=== PATIENT | female | born 1955 | race Caucasian/White ===

== ENCOUNTER → 2022-09-27 23:42 | Outpatient (CLI) | payer MEDICARE, MEDICAID, SELFPAY ==
[2022-09-27 18:49] LABS: Basophils # 0.1 K/mm3 (0-0.2); Basophils % 0.6 % (0.1-2.0); Eosinophils # 0.3 K/mm3 (0.0-0.4); Hematocrit 46.1 % (37.0-47.0); Hemoglobin 15.4 g/dL (12.2-16.2); Lymphocytes % 27.8 % (10-50); Mean Corpuscular HGB Conc 33.3 g/dL (31.8-35.4); Mean Corpuscular Hemoglobin 31.7 pg (27.0-31.2); Mean Corpuscular Volume 95.2 fl (81-99); Mean Platelet Volume 8.5 fl (7.4-10.4); Monocytes # 0.4 K/mm3 (0.1-1.0); Monocytes % 5.3 % (1.7-9.3); Neutrophils # 4.5 K/mm3 (1.8-7.8); Neutrophils % 62.2 % (37.0-80.0); Platelet Count 280 K/mm3 (142-424); Red Blood Count 4.85 M/mm3 (4.20-5.40); Red Cell Distribution Width 14.7 % (11.5-17.5); White Blood Count 7.3 K/mm3 (4.8-10.8)
[2022-09-27 19:20] LABS: Alanine Aminotransferase 17 U/L (12-78); Albumin/Globulin Ratio 1.6 (1.1-1.8); Alkaline Phosphatase 101 U/L (38-126); Anion Gap 20.9 mEq/L (5-15); Aspartate Amino Transferase 30 U/L (14-36); Bilirubin,Total 0.6 mg/dl (0.2-1.3); Blood Urea Nitrogen 9 mg/dl (7-17); Calcium 9.6 mg/dl (8.4-10.2); Carbon Dioxide 21 mmol/L (22.0-30.0); Chloride 102 mmol/L (98-107); Chol/HDL Ratio 2.7 (1-3.5); Cholesterol 228 mg/dl (140-200); Estimated Glomerular Filt Rate 99 ml/min (>60); GFR (African American) 120 ML/MIN (>60); Globulin 3.2 g/dL (1.3-3.2); Glucose 106 mg/dl (74-100); HDL Cholesterol 85 mg/dl (40-60); Potassium 3.9 mmoL/L (3.5-5.1); Sodium 140 mmol/L (136-145); Total Protein,Serum 8.2 g/dl (6.3-8.2); Triglycerides 102 mg/dl (30-150); VLDL Cholesterol 20 mg/dL (0-40)
[2022-09-27 19:31] LABS: Direct LDL Cholesterol 126.34 mg/dL (100-129)
[2022-09-27 19:39] LABS: T4 (Thyroxine) 9.1 ug/dl (5.53-11.0)
[2022-09-27 19:40] LABS: 25-OH Vitamin D, Total 40.4 ng/mL (30-100)
== END ==
PROVIDERS: PCP Emergency Medicine; Visit Provider Emergency Medicine
DX: E55.9 Vitamin D deficiency, unspecified (principal); E78.00 Pure hypercholesterolemia, unspecified; R53.83 Other fatigue; Z79.899 Other long term (current) drug therapy
CPT/HCPCS: 80053; 80061; 82306; 84436; 84443; 85025

== ENCOUNTER → 2022-12-20 08:38 | Outpatient (CLI) | payer MEDICARE, MEDICAID, SELFPAY ==
[2022-12-20 22:15] LABS: Amphetamine/Metha Screen,Urine Positive ng/ml (<1000); Barbiturates Screen,Urine Negative ng/ml (<200)
[2022-12-20 22:16] LABS: Benzodiazepines Screen,Urine Negative ng/ml (<200)
[2022-12-20 22:18] LABS: Cannabinoid Screen,Urine Negative ng/ml (<50)
[2022-12-20 22:19] LABS: Cocaine Screen,Urine Negative ng/ml (<300); Methadone Screen,Urine Negative ng/ml (<300)
[2022-12-20 22:20] LABS: Opiate Screen,Urine Positive ng/ml (<300); Phencyclidine Screen,Urine Negative ng/ml (<25)
== END ==
PROVIDERS: PCP Emergency Medicine; Visit Provider Emergency Medicine
DX: Z79.899 Other long term (current) drug therapy (principal)
CPT/HCPCS: 80305

== ENCOUNTER 2023-02-12 15:39 | Outpatient (CLI) | payer MEDICARE, MEDICAID, SELFPAY ==
[2023-02-12 13:21] LABS: Chol/HDL Ratio 2.5 (1-3.5); Cholesterol 141 mg/dl (140-200); HDL Cholesterol 57 mg/dl (40-60); Triglycerides 98 mg/dl (30-150); VLDL Cholesterol 20 mg/dL (0-40)
[2023-02-12 13:32] LABS: Direct LDL Cholesterol 71.58 mg/dL (100-129)
[2023-02-12 14:11] LABS: Cannabinoid Screen,Urine Negative ng/ml (<50)
[2023-02-12 14:13] LABS: Microalbumin < 6.000 mg/L (0-16.7)
[2023-02-12 15:29] LABS: Barbiturates Screen,Urine Negative ng/ml (<200); Benzodiazepines Screen,Urine Negative ng/ml (<200); Cocaine Screen,Urine Negative ng/ml (<300); Methadone Screen,Urine Negative ng/ml (<300); Opiate Screen,Urine Positive ng/ml (<300); Phencyclidine Screen,Urine Negative ng/ml (<25)
[2023-02-17 04:29] LABS: Amphetamine Positive (.); Amphetamine (GC/MS) >3000 ng/mL (Cutoff=500); Amphetamines Positive (.); Methamphetamine Negative (Cutoff=500)
== END 2023-02-12 23:59 ==
PROVIDERS: PCP Internal Medicine; Visit Provider Internal Medicine
DX: I10 Essential (primary) hypertension (principal); M79.2 Neuralgia and neuritis, unspecified; Z72.0 Tobacco use
CPT/HCPCS: 80061; 80307; 80324; 82043